=== PATIENT | male | born 1950 | race American Indian/Alaskan Native ===

== ENCOUNTER 2017-10-01 07:40 | Day surgery (SDC) | payer MEDICARE, BC ==
[2017-09-15 09:07] VITALS: BMI 50.2
[2017-10-01] MEDS ORDERED: Propofol 10 mg/ml Inj (20 ML) ONE (09:07)
[2017-10-01] MEDS ORDERED: Lidocaine 2% Inj (20ml) ONE (09:07)
[2017-10-01 10:51] VITALS: RESP 18
[2017-10-01 11:02] VITALS: BP 147/68; PULSE 53; TEMP 97.8; O2SAT 96
== END 2017-10-01 11:37 | disposition home or self-care (01) ==
LOC: ENDO 07:40
PROVIDERS: ATTEND Specialist
DX: Z12.11 Encounter for screening for malignant neoplasm of colon (principal); D12.3 Benign neoplasm of transverse colon; K63.5 Polyp of colon; K62.1 Rectal polyp; K64.8 Other hemorrhoids
CPT/HCPCS: 45385; 88305; J2704; J7040